=== PATIENT | female | born 1975 | race Caucasian/White ===

== ENCOUNTER 2018-08-04 07:58 | Emergency (ER) | payer OTHER ==
[~2018-08-04] VITALS: Ht 170.2 cm; Wt 73.9 kg
--- NOTE | 2018-08-04 08:09 | NUR ---
DR RAMIREZ PERFOMED A FAST EXAM ET STATES IT IS NEGITIVE.
[2018-08-04] MEDS ORDERED: fentaNYL INJECTION 100 MCG/2 ML AMP ONE (08:11)
[2018-08-04] MEDS ORDERED: NS IV 1000 ML 1,000 ML IV SCH (08:20)
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
[2018-08-04] MEDS ORDERED: IOHEXOL 350 MG/ML 100 ML (OMNIPAQUE 350) VIAL IV ONE (08:30)
[2018-08-04] MEDS ORDERED: NS 100 ML (IVPB) BAG IV ONE (08:30)
[2018-08-04] MEDS ORDERED: RECEIVED CONTRAST (Hold Metformin) IV SCH (08:30)
[2018-08-04] MEDS ORDERED: DICL1ADH18 (08:32)
[2018-08-04] MEDS ORDERED: GABA-486 (08:32)
[2018-08-04] MEDS ORDERED: CITA20TA9 (08:32)
[2018-08-04] MEDS ORDERED: TOPI25TA10 (08:32)
[2018-08-04] MEDS ORDERED: SUMA100T2 (08:32)
[2018-08-04] MEDS ORDERED: RIZA10TA25 (08:32)
[2018-08-04] MEDS ORDERED: TPR25T (08:32)
[2018-08-04 08:35] LABS: HEMOGLOBIN 12.7 G/DL (11.5-16.0); MEAN PLATELET VOLUME 11.1 FL (7.4-10.4); WHITE BLOOD COUNT 8.6 10^3/uL (4.3-11.0)
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
[2018-08-04] MEDS ORDERED: fentaNYL INJECTION 100 MCG/2 ML AMP IVP ONE (08:45)
[2018-08-04 08:58] LABS: ALANINE AMINOTRANSFERASE 38 U/L (0-55); ALBUMIN 4.1 GM/DL (3.2-4.5); ALKALINE PHOSPHATASE 60 U/L (40-136); BILIRUBIN,DIRECT 0.3 MG/DL (0.0-0.3); BILIRUBIN,INDIRECT 0.2 MG/DL; BILIRUBIN,TOTAL 0.5 MG/DL (0.1-1.0); BUN/CREATININE RATIO 10; CALCIUM 8.5 MG/DL (8.5-10.1); CARBON DIOXIDE 21 MMOL/L (21-32); CHLORIDE 113 MMOL/L (98-107); CREATININE SERUM 0.77 MG/DL (0.60-1.30); GFR ESTIMATED > 60; GLUCOSE 77 MG/DL (70-105); POTASSIUM 3.2 MMOL/L (3.6-5.0); SODIUM 141 MMOL/L (135-145); TOTAL PROTEIN 6.2 GM/DL (6.4-8.2)
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
--- NOTE | 2018-08-04 09:42 | NUR ---
DR RAMIREZ IN ROOM AT THIS TIME.
--- NOTE | 2018-08-04 09:47 | NUR ---
ICU CONTACTED FOR A SOFT COLLAR.
[2018-08-04] MEDS ORDERED: ACHD5005 PO (09:59)
[2018-08-04] MEDS ORDERED: CYCL10TA9 PO (10:09)
[2018-08-04] MEDS ORDERED: ORPHENADRINE 60 MG/2 ML (NORFLEX) AMP IV ONE (10:15)
[2018-08-04] MEDS ORDERED: HYDROcodone/APAP 5 MG/325 MG (LORTAB) TAB PO ONE (10:15)
--- NOTE | 2018-08-04 10:20 | NUR ---
soft c-collar placed on pt per doctor's order
[2018-08-04 10:30] VITALS: BP 118/65
[2018-08-04] MEDS ORDERED: TETANUS,DIPTH,PERTUSS P/F (BOOSTRIX) 0.5 ML VIAL IM ONE (10:30)
--- NOTE | 2018-08-04 10:45 | NUR ---
pt left before tetanus could be given.
== END 2018-08-04 10:20 | disposition home or self-care (01) ==
LOC: EDUNIT# 07:58 → ER 08:00
DX: S92.014A Nondisplaced fracture of body of right calcaneus, initial encounter for closed fracture (principal); M54.2 Cervicalgia; R07.9 Chest pain, unspecified; G43.909 Migraine, unspecified, not intractable, without status migrainosus; Z88.6 Allergy status to analgesic agent; Z98.84 Bariatric surgery status; V43.92XA Unspecified car occupant injured in collision with other type car in traffic accident, initial encounter
CPT/HCPCS: 36415; 70450; 71045; 72125; 72170; 73610; 74177; 80048; 80076; 80320; 84703; 85027; 93041

== ENCOUNTER 2020-06-01 05:33 | Outpatient (RCR) | payer OTHER ==
[~2020-06-01] VITALS: Ht 170 cm; Wt 88.1 kg
[~2020-06-01 05:33] MED LIST: ACHD5005 PO; CITA20TA9; CITA40TA11 PO; CYCL10TA9 PO; DICL1PAT11; GABA-486; LEVO5TAB28 PO; RIZA10TA37 PO; RIZA10TA94; SULF-11 PO; SUMA100T2; TOPI25TA10; TPR25T
== END 2020-06-01 10:00 | disposition home or self-care (01) ==
LOC: PREOP 05:33
PROVIDERS: ATTEND Urology
DX: Z01.812 Encounter for preprocedural laboratory examination (principal); N81.10 Cystocele, unspecified; R32 Unspecified urinary incontinence; Z20.828 Contact with and (suspected) exposure to other viral communicable diseases
CPT/HCPCS: 87635

== ENCOUNTER 2020-06-05 06:12 | Day surgery (SDC) | payer OTHER ==
[~2020-06-05] VITALS: Ht 170 cm; Wt 88.1 kg
[2020-06-05] VITALS (12 sets, daily range): BP systolic 101–126; BP diastolic 57–73
[2020-06-05] MEDS ORDERED: cefTRIAXone FOR IV USE 1,000 MG in WATER (STERILE) FOR INJECTION 10 ML IV ONE (06:30)
[2020-06-05] MEDS ORDERED: LACTATED RINGERS 1,000 ML IV PRN (06:30)
[2020-06-05] MEDS ORDERED: proPOfol 200 MG/20 ML (DIPRIVAN) VIAL IV ONE (06:42)
[2020-06-05] MEDS ORDERED: LIDOCAINE PF 2% 5 ML (XYLOCAINE) VIAL ONE (06:42)
[2020-06-05] MEDS ORDERED: MIDAZOLAM 2 MG/2 ML (VERSED) VIAL ONE (06:43)
[2020-06-05] MEDS ORDERED: ESTRADIOL VAGINAL CREAM 42.5 GM (ESTRACE) VG ONE (06:50)
[2020-06-05] MEDS ORDERED: LIDOCAINE/EPI 1%-1:100,000 (XYLOCAINE) 20ML ONE (06:50)
[2020-06-05] MEDS ORDERED: fentaNYL INJECTION 100 MCG/2 ML AMP ONE (06:56)
[2020-06-05] MEDS ORDERED: ONDANSETRON 4 MG/2 ML (SDV) Z0FRAN ONE (06:56)
[2020-06-05] MEDS ORDERED: SEVOFLURANE (ULTANE) 15 ML INHAL SOLN ONE (06:57)
--- NOTE | 2020-06-05 07:04 | Progress Note-Pre Operative ---
Pre-Operative Progress Note H&P Reviewed The H&P was reviewed, patient examined and no changes noted. Date Seen by Provider: Jun 05, 2020 Time Seen by Provider: 07:04 Date H&P Reviewed: Jun 05, 2020 Time H&P Reviewed: 07:04 Pre-Operative Diagnosis: CYSTOCELE, MARY LOU, AND OAB RODNEY FOOTE MD Jun 05, 2020 07:04
--- NOTE | 2020-06-05 07:08 | Progress Note-Post Operative ---
Post-Operative Progess Note Surgeon (s)/Finance Vice President (s) Surgeon RODNEY FOOTE MD Finance Vice President: NONE Pre-Operative Diagnosis CYSTOCELE, MARY LOU, AND OAB Post-Operative Diagnosis SAME Procedure & Operative Findings Date of Procedure 06/05/20 Procedure Performed/Findings ANTERIOR REPAIR, PVS, AND CYSTOSCOPY Anesthesia Type GENERAL Estimated Blood Loss Estimated blood loss (mL): 50cc Specimens/Packing Specimens Removed NONE Packin GM ESTRACE VAGINAL PACK RODNEY FOOTE MD Jun 05, 2020 07:08
[2020-06-05] MEDS: LACTATED RINGERS 1,000 ML IV SCH ×2 (07:50→13:37)
[2020-06-05] MEDS ORDERED: HYDROmorphone 2 MG/ML VIAL (DILAUDID) IV ONE (08:15)
[2020-06-05] MEDS ORDERED: ONDANSETRON 4 MG/2 ML (SDV) Z0FRAN IVP PRN (08:15)
[2020-06-05] MEDS ORDERED: morphine INJ 10 MG/ML 1ML (SYR OR VIAL) IVP ONE (08:15)
--- NOTE | 2020-06-05 09:00 | NUR ---
Paty Yeboah admitted to room 3306-1 via pt bed, accompanied by PACU staff, after an anterior repair with pubovaginal sling and cystoscopy today per Dr. Baker.JULI YEBOAH introduced to surroundings, call light, bed controls, phone, TV, temperature control, lights, meal times, smoking policy, visitor policy, side rail policy, bathrooms and showers. Patient Rights given to patient in the handbook.
--- NOTE | 2020-06-05 09:10 | NUR ---
Vital signs obtained, observed incision site, vag pack in place. Informed pt on how to use call light, fresh ice water given, and warm blanket applied. No further needs at this time.
--- NOTE | 2020-06-05 10:50 | NUR ---
CALLED RT FOR I.S. PT SLEEPING AT THIS TIME. GOOD URINE OUTPUT.
[2020-06-05] MEDS: LORATADINE (CLARITIN) 10 MG TAB PO SCH (12:05)
[2020-06-05] MEDS: SUMAtriptan 50 MG (IMITREX) TAB PO PRN (12:06)
--- NOTE | 2020-06-05 12:13 | OPERATIVE REPORT ---
DATE OF SERVICE: 06/05/2020 PREOPERATIVE DIAGNOSES: 1. Cystocele. 2. Mixed incontinence and overactive bladder. POSTOPERATIVE DIAGNOSES: 1. Cystocele. 2. Mixed incontinence and overactive bladder. OPERATION PERFORMED: Anterior repair and pubovaginal sling with cystoscopy. SURGEON: Karthikeyan Foote MD ANESTHESIA: General. COMPLICATIONS: None. DESCRIPTION OF PROCEDURE: Under satisfactory general anesthesia, the patient in extended lithotomy position, the abdomen, genitalia and thigh were prepped and draped in the usual sterile fashion with separate vaginal prep. Patel catheter was inserted and the bladder was drained. Anterior vaginal wall was infiltrated with 1% lidocaine with epinephrine and a midline incision was made in the anterior vaginal wall and the mucosa was dissected off the underlying fascia. The dissection was carried toward the inferior ischial ramus. The fascia was approximated with interrupted 2-0 Vicryl giving good support to the bladder. The sling was passed using the [employer] One instrument. Using the proper technique anchors inserted into the obturator internus muscle. The sling was sitting nicely under the mid urethra with no tension, no twist and passage of a curved hemostat easily between it and the underlying tissue. The Patel catheter was removed. Cystoscopy was performed to confirm the integrity of the bladder, ureteral orifice and urethra with no foreign body and presence of the sling under the mid urethra and the bladder was left at least half full to perform a manual Valsalva maneuver after removing the cystoscope and it was negative. Patel catheter was reinserted draining clear fluid. The excess vaginal mucosa was sharply excised and the mucosa was approximated with a running 2-0 Vicryl Rapide type suture. Two grams Estrace vaginal pack was inserted. Estimated blood loss was 50 mL. Needle, sponge, instrument count correct x2. Urine clear. The patient tolerated the procedure and anesthesia well and was sent to recovery room in stable condition. Job ID: [id number] DocumentID: [id number] Dictated Date: 06/05/2020 08:03:23 Welt Beater Date: 06/05/2020 12:12:03 Dictated By: KARTHIKEYAN FOOTE MD [facility]
[2020-06-05] MEDS: KETOROLAC 30 MG/ML VIAL IV PRN ×2 (13:18→19:56)
--- NOTE | 2020-06-05 19:50 | NUR ---
Assessments and VS done. no needs at this time. Moderate amount of clear urine in thayer. Pt states pain in 4-5. Toradol given. will re-evaluate.
[2020-06-06 00:50] VITALS: BP 103/55
[2020-06-06] MEDS: KETOROLAC 30 MG/ML VIAL IV PRN ×2 (01:00→09:21)
[2020-06-06] MEDS: LACTATED RINGERS 1,000 ML IV SCH (01:00)
--- NOTE | 2020-06-06 01:00 | NUR ---
Sleeping well. No needs at this time
--- NOTE | 2020-06-06 06:00 | NUR ---
Catheter removed and vaginal packing removed. pt tolerated well
[2020-06-06 06:13] VITALS: BP 103/57
--- NOTE | 2020-06-06 06:53 | NUR ---
Up to void. 200cc pink tinged urine. pt denies any pain or discomfort. back to chair in room
[2020-06-06] MEDS ORDERED: LEVOFLOXACIN 250 MG/50 ML IVPB 50 ML IV SCH (07:08)
[2020-06-06] MEDS: LORATADINE (CLARITIN) 10 MG TAB PO SCH (08:10)
[2020-06-06 08:15] VITALS: BP 102/58
--- NOTE | 2020-06-06 08:15 | NUR ---
A.M. ASSESSMENT COMPLETED. RECEIVING LEVAQUIN AT THIS TIME. VSS. PT VOIDED 100 CC PRIOR TO THIS RN ENTERING ROOM. STATES SPOUSE IS WAITING IN THE PARKING LOT R/T HAVING TO BRING THEIR DAUGHTER TO DANCE PRACTICE IN [place].
--- NOTE | 2020-06-06 08:50 | NUR ---
OUT TO AMBULATE IN THE [place]OG[place]. MOVES WELL. WILL BLADDER SCAN AFTER NEXT VOID.
--- NOTE | 2020-06-06 09:20 | NUR ---
VOIDED 425 CC AND BLADDER SCAN WITH 87 MLS RESIDUAL.
--- NOTE | 2020-06-06 09:30 | NUR ---
MESSAGE LEFT WITH DR. FOOTE WITH ABOVE INFORMATION R/T BLADDER SCAN.
[2020-06-06] MEDS: SUMAtriptan 50 MG (IMITREX) TAB PO PRN (10:03)
--- NOTE | 2020-06-06 10:03 | NUR ---
IMITREX 50 MG P.O. FOR HEADACHE RATED 9/10. DENIES ANY PAIN R/T SURGERY.
--- NOTE | 2020-06-06 10:05 | NUR ---
ORDERS RECEIVED TO ALLOW PT TO GO HOME.
[2020-06-06] MEDS ORDERED: CIPR-225 PO (10:09)
--- NOTE | 2020-06-06 10:50 | NUR ---
DISCHARGE INSTRUCTIONS REVIEWED WITH COPY TO PT. RX CALLED TO [facility] IN [place]. STATES UNDERSTANDING OF ALL INSTRUCTIONS AND NEED TO F/U SCHEDULED AND NEEDED.
[2020-06-06 11:05] VITALS: BP 102/58
--- NOTE | 2020-06-06 11:05 | NUR ---
DISMISSED VIA W/C FROM [facility] IN STABLE CONDITION TO [facility]WAITING [facility]ILY [facility] BY LUDY ARZATE.
--- NOTE | 2020-06-06 14:14 | Anesthesia-General Post-Op ---
General Patient Condition Mental Status/LOC: Same as Preop Cardiovascular: Satisfactory Nausea/Vomiting: Absent Respiratory: Satisfactory Pain: Controlled Complications: Absent Post Op Complications Complications None Follow Up Care/Instructions Patient Instructions None needed. Anesthesia/Patient Condition Patient Condition Patient is doing well, no complaints, stable vital signs, no apparent adverse anesthesia problems. No complications reported per nursing. AIDA PADRON CRNA Jun 06, 2020 14:14
== END 2020-06-06 11:05 | disposition home or self-care (01) ==
LOC: SDC 06:12 → WS 09:07 → SDC 06-06 11:05
PROVIDERS: ATTEND Urology
DX: N81.10 Cystocele, unspecified (principal); N39.46 Mixed incontinence; N32.81 Overactive bladder; F32.9 Major depressive disorder, single episode, unspecified; K21.9 Gastro-esophageal reflux disease without esophagitis; F41.9 Anxiety disorder, unspecified; G43.909 Migraine, unspecified, not intractable, without status migrainosus; Z79.899 Other long term (current) drug therapy; Z88.5 Allergy status to narcotic agent
CPT/HCPCS: 57240; 57288; 87081; C1771